=== PATIENT | female | born 1975 | race Hispanic/Latino ===

== ENCOUNTER 2023-10-04 12:26 | Emergency (ER) | payer BC, SELFPAY ==
[2023-10-04 12:30] VITALS: BP 154/107
[2023-10-04 12:47] LABS: % Basophils 0.7 % (0-2); % Eosinophils 7.1 % (0-6); % Immature Granulocytes 0.6 % (0-0.5); % Lymphocytes 21.8 % (20.5-51.1); % Monocytes 6.5 % (1.7-9.3); % Neutrophils 63.3 % (42.2-75.2); Absolute Basophils 0.1 10^3/uL (0-0.2); Absolute Eosinophils 0.6 10^3/uL (0-0.7); Absolute Immature Granulocytes 0.1 10^3/uL (0-0.05); Absolute Lymphocytes 1.9 10^3/uL (1.2-3.4); Absolute Monocytes 0.6 10^3/uL (0.1-0.6); Absolute Neutrophils 5.6 10^3/uL (1.4-6.5); Hematocrit 39.3 % (37.0-47.0); Hemoglobin 13.6 g/dL (12.0-16.0); Mean Corp Hgb Conc. 34.6 g/dL (33.0-37.0); Mean Corpuscular Hgb 27.7 pg (27.0-31.0); Mean Platelet Volume 8.2 fL (7.4-10.4); Nucleated Red Blood Cells % 0 %; Platelet Count 384 10^3/uL (130-400); Red Blood Cell Count 4.91 10^6/uL (4.20-5.40); Red Cell Dist. Width 13.1 % (11.5-14.5); White Blood Cell Count 8.9 10^3/uL (4.8-10.8)
[2023-10-04 13:01] LABS: ALT (SGPT) 28 U/L (0-35); AST (SGOT) 25 U/L (14-36); Albumin 4.5 g/dl (3.5-5.0); Alkaline Phosphatase 67 U/L (38-126); Blood Urea Nitrogen 15 mg/dl (7-17); Calcium 10.1 mg/dl (8.4-10.2); Carbon Dioxide 22 mmol/L (22-30); Chloride 103 mmol/L (98-107); Glucose 103 mg/dl (70-99); Potassium 4.3 mmol/L (3.5-5.1); Sodium 136 mmol/L (135-145); Total Bilirubin 0.7 mg/dl (0.2-1.3); Total Protein 7.2 g/dl (6.3-8.2); eGFR > 60.00
[2023-10-04 13:10] LABS: Troponin I < 0.012 ng/ml
--- NOTE | 2023-10-04 15:35 | ED.GENMED ---
History of Present Illness
General
Chief Complaint: Breathing Problem
Source: patient
Exam Limitations: none
Time Seen by Provider: 10/04/23 15:16
Nursing documentation reviewed up to this point in time: agreed with
Travel History
Have you had any contact with someone who has COVID-19?: No
Do you have any symptoms of coronavirus? Fever > 100 degrees, chills, cough, shortness of breath, sore throat, loss of taste or smell, muscle aches, or headache?: Yes
Symptoms:: SOB
History of Present Illness
History of Present Illness:
Patient with history of longstanding asthma, presents to ED secondary to 5-day history of persistent cough with worsening shortness of breath, despite utilizing inhaler at home. Denies fever or chills. Denies nausea, vomiting, or diarrhea. Denies
headache. Denies sore throat. Denies rash. Denies sick contact. Patient moved to [place] from [place] 2 weeks ago, which she believes may be contributory symptoms. Patient's last visit to ED secondary to asthma flareup was approxi-9 years
ago.
Review of Systems
Review of Systems
Allergies reviewed?: Yes
All Other Systems: ROS reviewed and negative except as documented in HPI and ROS
Constitutional: Reports no symptoms; Denies fever
EENT: Reports no symptoms
Respiratory: Reports cough and trouble breathing
Cardiac: Reports no symptoms
ABD/GI: Reports no symptoms
: Reports no symptoms
Musculoskeletal: Reports no symptoms
Skin: Reports no symptoms
Neurological: Reports no symptoms
Phy Exam
Physical Exam
Physical Exam:
Physical Exam
General: mild respiratory distress, not acutely ill. afebrile
Head: nc/at. eomi
Neck: supple. no meningeal signs.
Heart: s1/s2 regular rate and rhythm, no murmur. equal radial pulses.
Lungs: mild respiratory distress. diffuse expiratory wheezing noted bilaterally
Abdomen: normal bowel sounds. not tender.
Neuro: alert and oriented. no focal neurological deficits
Skin: no rash
Psychiatric: well kept. interactive and cooperative
Extremities: no edema. no calf tenderness.
Scores
Heart Failure Risk
Heart Failure Risk Score: Not Applicable
Course
Orders/Labs/Results
Orders:
Orders
10/04/23 12:33
Electrocardiogram (*1) Urgent
Reason for Study: Shortness of Breath
EKG- Treatment ONCE
10/04/23 12:34
Chest [CR Chest - 2 Views ] Urgent
Comment:
Reason For Exam: SOB
10/04/23 12:39
Complete Blood Count/With Diff Urgent
Comprehensive Metabolic Panel Urgent
Troponin I Urgent
10/04/23 15:34
Albuterol Sulfate [Ventolin Nebules] 7.5 mg INH R NOW STA
Ipratropium Nebs [Atrovent Nebules] 1 mg INH R NOW STA
Prednisone [Deltasone] 50 mg PO NOW STA
10/04/23 15:35
Guaifenesin/Codeine Solution [Robitussin AC] 10 ml PO NOW STA
10/04/23 16:06
COVID-19 Antigen Urgent
Source: Nasal Swab
Abnormal Lab Results
10/04/23
12:39
MCV 80.0 L fL
(81.0-99.0)
Abs Immat Gran (auto) 0.1 H 10^3/uL
(0-0.05)
Immature Gran % 0.6 H %
(0-0.5)
Eosinophils % 7.1 H %
(0-6)
Glucose 103 H mg/dl
(70-99)
10/04/23 12:39
10/04/23 12:39
Vital Signs
Initial and Last Documented VS:
Initial Vital Signs
Temp Pulse Resp BP Pulse Ox
98.0 F 103 22 154/107 97
10/04/23 12:30 10/04/23 12:30 10/04/23 12:30 10/04/23 12:30 10/04/23 12:30
Last Documented Vital Signs
Temp Pulse Resp BP Pulse Ox
98.0 F 95 18 125/75 98
10/04/23 12:30 10/04/23 18:25 10/04/23 18:25 10/04/23 18:25 10/04/23 18:25
MDM/Problems Addressed
MDM/Problems Addressed:
Patient reports improvement in symptoms after treatment. Upon reexamination, patient with continual diffuse wheezing noted, but is able to take deeper breath and feels much improved. As such, decision made to discharge patient home with following
recommendation, continued use of inhaler, along with prednisone, Z-Sonny, as well as antitussive medication. Recommended PCP follow-up as an outpatient, or return to ED with worsening symptoms. Patient is otherwise afebrile, hemodynamically stable,
and without hypoxia, at time of discharge, to the care of her family.
*EKG
Interpreted by ED Provider?: Yes
EKG Intrepretation Date: 10/04/23
Interpretation: normal
Heart Rate: 92
Rate: normal
Rhythm: sinus
Blair: normal axis
Interval: normal interval
*Critical Care Note
Total Time (30-74mins, 75-104mins- exclusive of procedures): Not Applicable
ED Attending Note
-
Portions of this chart may have been created with voice recognition software.� Occasional wrong word or��sound alike� substitutions may have occurred due to the inherent limitations of voice recognition software.
Discharge Plan
Departure
Patient Disposition: Home (Routine Discharge)
Date of Disposition: 10/04/23
Time of Disposition: 17:58
Patient with high blood pressure during this ER visit?: Yes
Condition: Good
Covid-19: Negative COVID-19
Discharge Problem:
Asthmatic bronchitis , chronic
Instructions: Asthma, Adult (DC), Acute Bronchitis, Adult (DC)
Prescriptions:
New
albuterol sulfate [ProAir HFA] 90 mcg/actuation Hfa Aerosol Inhaler
2 puff INHALATION Q4HPRN PRN (Reason: shortness of breath) Qty: 8.5 0RF
prednisone 50 mg Tablet
50 mg PO DAILY Qty: 2 0RF
azithromycin [Zithromax Z-Sonny] 250 mg tablet
250 mg PO DAILY 6 Days Qty: 6 0RF
Rx Instructions:
Day1: 500mg po x 1
Day 2-5 : 250 mg po daily
benzonatate 100 mg capsule
100 mg PO TID PRN (Reason: Cough) Qty: 20 0RF
Referrals:
NONE,* [Family Provider] -
Activity Restrictions/Additional Instructions:
As discussed, please follow-up with your primary care physician for reevaluation. Your prescriptions have been sent electronically to [facility] pharmacy in [place].
Interventions
Interventions:
*Risk Screen - Suicide Last Done: 10/04/23 16:08
*Neglect/Abuse Screening Last Done: 10/04/23 16:06
ED- Fall Risk Assessment Last Done: 10/04/23 16:11
*Nursing Disposition Last Done: 10/04/23 18:25
ED- Cardiac Assessment Last Done: 10/04/23 16:11
ED- Pulmonary Assessment Last Done: 10/04/23 16:11
Discharge Date and Time
Discharge Date/Time: 10/04/23 18:30
[2023-10-04 16:06] VITALS: BMI 29.4
[2023-10-04 16:31] LABS: COVID-19 Antigen Negative (Negative)
[2023-10-04] MEDS: DELTASONE 50 MG PO (16:43)
[2023-10-04] MEDS: ROBITUSSIN AC 10 ML PO (16:43)
[2023-10-04] MEDS: VENTOLIN NEBULES 7.5 MG INH (16:44)
[2023-10-04] MEDS: ATROVENT NEBULES 1 MG INH (16:44)
[2023-10-04 16:50] VITALS: BP 131/91
[2023-10-04 18:25] VITALS: BP 125/75
== END 2023-10-04 18:30 | disposition home or self-care (01) ==
LOC: EMR 12:26
PROVIDERS: Emergency Medicine; EMERGENCY PHYSICIAN Emergency Medicine
DX: J45.909 Unspecified asthma, uncomplicated (principal)
CPT/HCPCS: 99284; 94640; 71046; 80053; 84484; 85025; 87811; 93005

== ENCOUNTER 2024-05-15 08:25 | Emergency (ER) | payer SELFPAY ==
[2024-05-15 08:26] VITALS: BMI 30.4
[2024-05-15 08:27] VITALS: BP 174/105
[2024-05-15 08:36] VITALS: BP 143/92
[2024-05-15] MEDS: ATIVAN 1 MG PO (08:57)
[2024-05-15] MEDS: LIPITOR 40 MG PO (08:57)
[2024-05-15] MEDS: ATARAX 50 MG PO (08:57)
[2024-05-15] MEDS: PROZAC 40 MG PO (09:05)
--- NOTE | 2024-05-15 09:08 | ED.GENMED ---
History of Present Illness
General
Chief Complaint: Blood Pressure Problem
Source: patient and spouse
Exam Limitations: none
Time Seen by Provider: 05/15/24 08:33
Nursing documentation reviewed up to this point in time: agreed with except (No chest pain or shortness of)
History of Present Illness
History of Present Illness:
49-year-old female, high cholesterol anxiety depression recently moved to [place] from [place] she has had some anxiety depression related to the move also the loss of family members over the past 2 years ran out of her meds, did get a refill
from an urgent care, no drugs or alcohol, she feels anxious tearful no suicidal thoughts no homicidal thoughts no hallucinations she uses melatonin at times and some [id number] meds to help she would like to have refills on her meds, she has
no PCP no chest pain or shortness of breath this is a correction from the nurses note
Past History
Past History
ED Past Medical History: Hypercholesterolemia and Psychiatric
Social History
Tobacco: Non-smoker
Alcohol: None
Drug: None
Personal:
Living: with family
Employment: Employed
Review of Systems
Review of Systems
All Other Systems: Not applicable
Constitutional: Reports sleep disturbance
EENT: Reports no symptoms
Respiratory: Reports no symptoms; Denies trouble breathing
Cardiac: Reports no symptoms; Denies chest pain or syncope
Psychiatric: Reports depression and anxiety; Denies suicidal or hallucinations
Phy Exam
Physical Exam
Physical Exam:
Physical Exam
General: 49-year-old female tearful at times cooperative
Neck: No jaundice
Heart: s1/s2 regular rate and rhythm, no murmur. equal radial pulses.
Lungs: no acute respiratory distress. clear bilaterally
Abdomen: Nontender
Neuro: alert and oriented. no focal neurological deficits
Skin: no rash
Psychiatric tearful but cooperative not suicidal
Extremities: no edema.
Course
Orders/Labs/Results
Orders:
Orders
05/15/24 08:30
Electrocardiogram (*1) Urgent
Reason for Study: Hypertension, Benign
05/15/24 08:31
EKG- Treatment ONCE
05/15/24 08:49
Fluoxetine HCl [Prozac] 40 mg PO DAILY ONE
Lorazepam [Ativan] 1 mg PO NOW STA
05/15/24 08:50
Atorvastatin [Lipitor] 40 mg PO NOW STA
HydrOXYZINE [Atarax] 50 mg PO NOW STA
05/15/24 08:51
Crisis Consult Routine
Reason for Consult: anxiety outpto
Vital Signs
Initial and Last Documented VS:
Initial Vital Signs
Temp Pulse Resp BP Pulse Ox
98.1 F 93 18 174/105 99
05/15/24 08:27 05/15/24 08:27 05/15/24 08:27 05/15/24 08:27 05/15/24 08:27
Last Documented Vital Signs
Temp Pulse Resp BP Pulse Ox
98.1 F 104 19 143/92 99
05/15/24 08:27 05/15/24 08:45 05/15/24 08:45 05/15/24 08:36 05/15/24 08:45
MDM/Problems Addressed
Differential Diagnosis Includes:
Anxiety, depression, no substance abuse history, noncompliant with meds,
MDM/Problems Addressed:
Anxiety depression
Chronic conditions affecting care: Psychiatric illness
Acute Exacerbation and/or Progression of Chronic Illness: Psychiatric illness
*Pulse Oximetry
Patient hypoxic: no
*Critical Care Note
Total Time (30-74mins, 75-104mins- exclusive of procedures): Not Applicable
Update Note
Update Note:
Update, patient with a long history of anxiety and depression have been in therapy had been on meds will refill her meds give a dose of lorazepam here, blood pressure is improved already with reassurance, reviewed with case management, will give
referral to an outpatient primary care clinic, also crisis to get outpatient psychiatric therapy follow-up
ED Attending Note
-
Portions of this chart may have been created with voice recognition software.� Occasional wrong word or��sound alike� substitutions may have occurred due to the inherent limitations of voice recognition software.
Discharge Plan
Departure
Patient Disposition: Home (Routine Discharge)
Date of Disposition: 05/15/24
Time of Disposition: :13
Patient with high blood pressure during this ER visit?: Yes
Discharge Problem:
Anxiety
Instructions: BLOOD PRESSURE, Anxiety, Adult ED
Prescriptions:
New
hydroxyzine pamoate 50 mg capsule
50 mg PO TID PRN (Reason: anxiety) Qty: 90 0RF
atorvastatin 40 mg tablet
40 mg PO DAILY Qty: 30 0RF
fluoxetine 40 mg capsule
40 mg PO DAILY Qty: 30 0RF
No Action
albuterol sulfate [ProAir HFA] 90 mcg/actuation Hfa Aerosol Inhaler
2 puff INHALATION Q4HPRN PRN (Reason: shortness of breath) Qty: 8.5 0RF
prednisone 50 mg Tablet
50 mg PO DAILY Qty: 2 0RF
azithromycin [Zithromax Z-Sonny] 250 mg tablet
250 mg PO DAILY 6 Days Qty: 6 0RF
Rx Instructions:
Day1: 500mg po x 1
Day 2-5 : 250 mg po daily
benzonatate 100 mg capsule
100 mg PO TID PRN (Reason: Cough) Qty: 20 0RF
Stand Alone Forms: Return to Work
Activity Restrictions/Additional Instructions:
Take medications as prescribed, follow-up with primary care provider as provided to you by the case monitor, also follow-up with [facility] crisis providers
Interventions
Interventions:
*Risk Screen - Suicide Last Done: 05/15/24 08:45
*General Assessment Last Done: 05/15/24 08:27
*Neglect/Abuse Screening Last Done: 05/15/24 08:39
ED- Fall Risk Assessment Last Done: 05/15/24 08:46
*ED COVID-19 Vaccine History Last Done: 05/15/24 08:39
ED- Cardiac Assessment Last Done: 05/15/24 08:41
ED- Neurological Assessment Last Done: 05/15/24 08:41
ED- Pulmonary Assessment Last Done: 05/15/24 08:41
Discharge Date and Time
Print Language: ROMANSH
--- NOTE | 2024-05-15 09:10 | CM ---
CM was consulted to provide patient with PCP resources. CM provided patient with written information on [facility]. Patient was grateful and stated that [place] so we was glad the clinic was close. CM will remain available
as needed.
[2024-05-15 10:00] VITALS: BP 120/81
[2024-05-15 10:08] VITALS: BP 120/81
== END 2024-05-15 10:26 | disposition home or self-care (01) ==
LOC: EMR 08:25
PROVIDERS: EMERGENCY PHYSICIAN Emergency Medicine
DX: F41.9 Anxiety disorder, unspecified (principal); R11.0 Nausea; R51.9 Headache, unspecified; R06.02 Shortness of breath; R03.0 Elevated blood-pressure reading, without diagnosis of hypertension; F32.A Depression, unspecified; Z63.4 Disappearance and death of family member; E78.00 Pure hypercholesterolemia, unspecified; Z91.148 Patient's other noncompliance with medication regimen for other reason; J45.909 Unspecified asthma, uncomplicated; I10 Essential (primary) hypertension
CPT/HCPCS: 99283; 93005

== ENCOUNTER 2024-08-30 10:52 | Emergency (ER) | payer SELFPAY ==
[2024-08-30 11:05] VITALS: BP 145/97
--- NOTE | 2024-08-30 11:11 | ED.GENMED ---
ED Provider Triage
<Jackson Langley PA-C - Last Filed: 08/30/24 11:11>
-
Patient seen by provider in Triage?: Seen in Triage
49-year-old female with history of asthma presents with 5 days worth of cough fever shortness of breath tightness. She has been using her inhaler. Temperature has been as high as 102.1 at home. No known sick contacts. Still notes chest tightness
despite her interventions at home
No significant respiratory distress or hypoxia out of triage will start workup with blood work COVID flu testing chest x-ray
Patient seen by healthcare provider at triage but warrants further assessment
History of Present Illness
<Jackson Langley PA-C - Last Filed: 08/30/24 11:11>
General
Chief Complaint: Breathing Problem
Time Seen by Provider: 08/30/24 13:28
<Kevin Beckman PA-C - Last Filed: 08/30/24 21:19>
History of Present Illness
History of Present Illness:
49-year-old female with history of asthma presents to the emergency department for evaluation of shortness of breath and wheezing worsening over the past 1 to 2 days. Reports nasal congestion for the past week. Has been using her nebulizer at home
without relief. No fevers chills or night sweats
Past History
<Jackson Langley PA-C - Last Filed: 08/30/24 11:11>
Past History
ED Past Medical History: Hypercholesterolemia and Psychiatric
Social History
Tobacco: Non-smoker
Alcohol: None
Drug: None
Personal:
Living: with family
Employment: Employed
Review of Systems
<Kevin Beckman PA-C - Last Filed: 08/30/24 21:19>
Review of Systems
Allergies reviewed?: Yes
All Other Systems: ROS reviewed and negative except as documented in HPI and ROS
Phy Exam
<Kevin Beckman PA-C - Last Filed: 08/30/24 21:19>
Physical Exam
Physical Exam:
GEN: Well appearing, NAD, WDWN
HEENT: Oral mucosa moist, no scleral icterus
Cardiac: Regular rate
Lung: No respiratory distress, no tachypnea, harsh expiratory wheezes heard throughout all lung camarena
MSK: No gross deformity or injuries
Skin: Good color, no pallor or jaundice, no rashes
Neuro: AO x3, moves all extremities freely
Psych: Calm, cooperative
Scores
<Kevin Beckman PA-C - Last Filed: 08/30/24 21:19>
Heart Failure Risk
Heart Failure Risk Score: Not Applicable
Course
<Jackson Langley PA-C - Last Filed: 08/30/24 11:11>
Orders/Labs/Results
Orders:
Orders
08/30/24 11:10
CR Chest - 2 Views Urgent
Comment:
Reason For Exam: cough
08/30/24 11:25
COVID-19 Antigen Urgent
Source: Nasal Swab
Complete Blood Count/With Diff Urgent
Comprehensive Metabolic Panel Urgent
HCG, Serum Qualitative Screen Urgent
Comment: HCG QUAL ADDED ON BY FLOOR 2:20PM 08-30-24
Influenza A+B Rapid Molecular Urgent
BARAK Source: Nasal Swab
Specimen Description:
08/30/24 13:56
Dexamethasone Sod Phosphate [Decadron] 10 mg IV NOW STA
Ipratropium/Albuterol Sulfate [Duoneb] 6 ml INH R NOW STA
08/30/24 14:22
Add On- LAB ONCE
Comments:: sst in lab
Tests Added?: hcg qual
08/30/24 15:23
Ipratropium/Albuterol Sulfate [Duoneb] 3 ml INH R NOW ONE
Abnormal Lab Results
08/30/24
11:25
RDW 14.9 H %
(11.5-14.5)
Absolute Monos (auto) 1.0 H 10^3/uL
(0.1-0.6)
Monocytes % 10.7 H %
(1.7-9.3)
Creatinine 0.5 L mg/dL
(0.6-1.0)
AST 82 H U/L
(14-36)
ALT 86 H U/L
(0-35)
08/30/24 11:25
08/30/24 11:25
Vital Signs
Initial and Last Documented VS:
Initial Vital Signs
Temp Pulse Resp BP Pulse Ox
97.5 F 92 20 145/97 99
08/30/24 11:05 08/30/24 11:05 08/30/24 11:05 08/30/24 11:05 08/30/24 11:05
Last Documented Vital Signs
Temp Pulse Resp BP Pulse Ox
97.5 F 98 16 145/97 96
08/30/24 11:05 08/30/24 15:49 08/30/24 15:49 08/30/24 11:05 08/30/24 15:49
<Kevin Beckman PA-C - Last Filed: 08/30/24 21:19>
Orders/Labs/Results
Orders:
Orders
08/30/24 11:10
CR Chest - 2 Views Urgent
Comment:
Reason For Exam: cough
08/30/24 11:25
COVID-19 Antigen Urgent
Source: Nasal Swab
Complete Blood Count/With Diff Urgent
Comprehensive Metabolic Panel Urgent
HCG, Serum Qualitative Screen Urgent
Comment: HCG QUAL ADDED ON BY FLOOR 2:20PM 08-30-24
Influenza A+B Rapid Molecular Urgent
BARAK Source: Nasal Swab
Specimen Description:
08/30/24 13:56
Dexamethasone Sod Phosphate [Decadron] 10 mg IV NOW STA
Ipratropium/Albuterol Sulfate [Duoneb] 6 ml INH R NOW STA
08/30/24 14:22
Add On- LAB ONCE
Comments:: sst in lab
Tests Added?: hcg qual
08/30/24 15:23
Ipratropium/Albuterol Sulfate [Duoneb] 3 ml INH R NOW ONE
Abnormal Lab Results
08/30/24
11:25
RDW 14.9 H %
(11.5-14.5)
Absolute Monos (auto) 1.0 H 10^3/uL
(0.1-0.6)
Monocytes % 10.7 H %
(1.7-9.3)
Creatinine 0.5 L mg/dL
(0.6-1.0)
AST 82 H U/L
(14-36)
ALT 86 H U/L
(0-35)
08/30/24 11:25
08/30/24 11:25
Vital Signs
Initial and Last Documented VS:
Initial Vital Signs
Temp Pulse Resp BP Pulse Ox
97.5 F 92 20 145/97 99
08/30/24 11:05 08/30/24 11:05 08/30/24 11:05 08/30/24 11:05 08/30/24 11:05
Last Documented Vital Signs
Temp Pulse Resp BP Pulse Ox
97.5 F 98 16 145/97 96
08/30/24 11:05 08/30/24 15:49 08/30/24 15:49 08/30/24 11:05 08/30/24 15:49
<Kevin Beckman PA-C - Last Filed: 08/30/24 21:19>
MDM/Problems Addressed
MDM/Problems Addressed:
Patient improved with prolonged treatment in the ED, suitable for outpatient management. Will treat with doxycycline given recent community rise of mycoplasma pneumonia although this may be a viral etiology
<Kevin Beckman PA-C - Last Filed: 08/30/24 21:19>
*Critical Care Note
Total Time (30-74mins, 75-104mins- exclusive of procedures): Not Applicable
ED Attending Note
<Jackson Langley PA-C - Last Filed: 08/30/24 11:11>
-
Portions of this chart may have been created with voice recognition software.� Occasional wrong word or��sound alike� substitutions may have occurred due to the inherent limitations of voice recognition software.
Discharge Plan
Departure
Patient Disposition: Home (Routine Discharge)
Date of Disposition: 08/30/24
Time of Disposition: 16:21
Patient with high blood pressure during this ER visit?: No
Discharge Problem:
Asthma exacerbation
Instructions: Asthma, Adult (DC)
Prescriptions:
New
ipratropium-albuterol 0.5 mg-3 mg(2.5 mg base)/3 mL solution for nebulization
3 ml inhalation Q4H Qty: 90 0RF
prednisone 20 mg tablet
40 mg PO DAILY 6 Days Qty: 12 0RF
doxycycline hyclate 100 mg tablet
100 mg PO BID Qty: 14 0RF
No Action
albuterol sulfate [ProAir HFA] 90 mcg/actuation Hfa Aerosol Inhaler
2 puff INHALATION Q4HPRN PRN (Reason: shortness of breath) Qty: 8.5 0RF
prednisone 50 mg Tablet
50 mg PO DAILY Qty: 2 0RF
azithromycin [Zithromax Z-Sonny] 250 mg tablet
250 mg PO DAILY 6 Days Qty: 6 0RF
Rx Instructions:
Day1: 500mg po x 1
Day 2-5 : 250 mg po daily
benzonatate 100 mg capsule
100 mg PO TID PRN (Reason: Cough) Qty: 20 0RF
hydroxyzine pamoate 50 mg capsule
50 mg PO TID PRN (Reason: anxiety) Qty: 90 0RF
atorvastatin 40 mg tablet
40 mg PO DAILY Qty: 30 0RF
fluoxetine 40 mg capsule
40 mg PO DAILY Qty: 30 0RF
Referrals:
NONE,* [Family Provider] -
Stand Alone Forms: Return to Work
Interventions
Interventions:
*Risk Screen - Suicide Last Done: 08/30/24 11:05
*General Assessment Last Done: 08/30/24 11:05
*Neglect/Abuse Screening Last Done: 08/30/24 11:05
*ED COVID-19 Vaccine History Last Done: 08/30/24 11:05
*Nursing Disposition Last Done: 08/30/24 17:09
ED- Cardiac Assessment Last Done: 08/30/24 14:20
ED- Pulmonary Assessment Last Done: 08/30/24 14:20
Discharge Date and Time
Discharge Date/Time: 08/30/24 17:09
Print Language: DIVEHI
[2024-08-30 11:33] LABS: % Basophils 0.2 % (0-2); % Eosinophils 0.2 % (0-6); % Immature Granulocytes 0.4 % (0-0.5); % Monocytes 10.7 % (1.7-9.3); % Neutrophils 64.5 % (42.2-75.2); Absolute Lymphocytes 2.3 10^3/uL (1.2-3.4); Absolute Neutrophils 6.1 10^3/uL (1.4-6.5); Hematocrit 42.8 % (37.0-47.0); Hemoglobin 14.2 g/dL (12.0-16.0); Mean Corp Hgb Conc. 33.2 g/dL (33.0-37.0); Mean Corpuscular Volume 81.4 fL (81.0-99.0); Mean Platelet Volume 8.3 fL (7.4-10.4); Nucleated Red Blood Cells % 0 %; Platelet Count 338 10^3/uL (130-400); Red Blood Cell Count 5.26 10^6/uL (4.20-5.40); Red Cell Dist. Width 14.9 % (11.5-14.5); White Blood Cell Count 9.4 10^3/uL (4.8-10.8)
[2024-08-30 11:46] LABS: ALT (SGPT) 86 U/L (0-35); AST (SGOT) 82 U/L (14-36); Alkaline Phosphatase 79 U/L (38-126); Blood Urea Nitrogen 13 mg/dl (7-17); Calcium 9.6 mg/dl (8.4-10.2); Carbon Dioxide 27 mmol/L (22-30); Chloride 101 mmol/L (98-107); Glucose 89 mg/dl (70-99); Potassium 4.1 mmol/L (3.5-5.1); Sodium 141 mmol/L (135-145); Total Bilirubin 0.4 mg/dl (0.2-1.3); Total Protein 7.8 g/dl (6.3-8.2); eGFR > 60.00
[2024-08-30 11:50] LABS: COVID-19 Antigen Negative (Negative)
[2024-08-30] MEDS: DECADRON 10 MG IV (14:17)
[2024-08-30] MEDS: DUONEB 6 ML INH (14:17)
[2024-08-30 15:08] LABS: HCG, Serum Qualitative Screen Negative
[2024-08-30] MEDS: DUONEB 3 ML INH (15:46)
== END 2024-08-30 17:09 | disposition home or self-care (01) ==
LOC: EMR 10:52
PROVIDERS: Physician Assistant; EMERGENCY PHYSICIAN Emergency Medicine
DX: J45.901 Unspecified asthma with (acute) exacerbation (principal); E78.00 Pure hypercholesterolemia, unspecified
CPT/HCPCS: 99284; 94640; 96374; 71046; 80053; 84703; 85025; 87502; 87811